=== PATIENT | female | born 1955 ===

== ENCOUNTER 2021-02-14 16:22 | Emergency (ER) | payer SELFPAY ==
[2021-02-14] MEDS ORDERED: Acetaminophen 500 MG TAB ONE (17:41)
[2021-02-15 12:13] LABS: SARS-CoV-2 PCR by NAA DETECTED (NotDetected)
== END 2021-02-14 17:55 | disposition home or self-care (01) ==
LOC: ERS 16:22
DX: U07.1 COVID-19 (principal)
CPT/HCPCS: 99284; U0003; U0005